=== PATIENT | male | born 1975 | race Caucasian/White ===

== ENCOUNTER 2025-02-13 21:35 | Inpatient (IN) | payer BC, OTHER ==
[~2025-02-13] VITALS: Ht 177.8 cm; Wt 84.8 kg
[2025-02-13] MEDS ORDERED: CLONIDINE HCL 0.1 MG TABLET PO ONE (23:00)
[2025-02-13] MEDS: hydrALAZINE HCL IV 20 MG VIAL IV ONE (23:00)
[2025-02-13] MEDS ORDERED: hydrALAZINE HCL IV 20 MG VIAL ONE (23:00)
[2025-02-13 23:06] LABS: PLATELET COUNT (AUTO) 252 K/uL (150-450); RED BLOOD CELL COUNT(AUTO) 4.84 MIL/uL (4.5-6.0); RED CELL DISTRIBUTION WIDTH 14.7 % (11.5-15.0); WHITE BLOOD COUNT (AUTO) 7.1 K/uL (4.3-11.0)
[2025-02-13 23:16] LABS: CALCIUM, SERUM 9.3 mg/dL (8.5-10.1); CREATININE 0.8 mg/dL (0.6-1.3); SODIUM SERUM 136 mmol/L (136-145); UREA NITROGEN, BLOOD 15 mg/dL (7-18)
[2025-02-13 23:27] LABS: ASPARTATE AMINOTRANSFERASE 59 U/L (15-37); NT-PRO BNP 83 pg/mL (0-125); TOTAL PROTEIN, SERUM 8.0 g/dL (6.4-8.2)
[2025-02-13 23:31] LABS: ALCOHOL, BLOOD < 3 mg/dL (0-10)
[2025-02-14] MEDS ORDERED: hydrALAZINE HCL IV 20 MG VIAL ONE (00:43)
[2025-02-14] MEDS: hydrALAZINE HCL IV 20 MG VIAL IV ONE (00:45)
[2025-02-14] MEDS ORDERED: CLONIDINE HCL 0.1 MG TABLET ONE (00:59)
[2025-02-14] MEDS ORDERED: LORAZEPAM INJ 2 MG/ML VIAL ONE (00:59)
[2025-02-14] MEDS ORDERED: ONDANSETRON HCL/PF 4 MG/2 ML VIAL ONE (00:59)
[2025-02-14] MEDS: CLONIDINE HCL 0.1 MG TABLET PO ONE (01:06)
[2025-02-14] MEDS: ONDANSETRON HCL/PF - ER 4 MG/2 ML VIAL IV ONE (01:07)
[2025-02-14] MEDS: IV NS 0.9% 1,000 ML IV ONE (01:07)
[2025-02-14] MEDS: LORAZEPAM INJ 2 MG/ML VIAL IV ONE (01:07)
[2025-02-14] MEDS ORDERED: MAGNESIUM HYDROXIDE 30 ML UDC PO PRN (02:30)
[2025-02-14] MEDS ORDERED: ACETAMINOPHEN 325 MG TABLET PO PRN (02:30)
[2025-02-14] MEDS ORDERED: MAG HYDROX/AL HYDROX/SIMETH 30 ML UDC PO PRN (02:30)
[2025-02-14] MEDS ORDERED: LORAZEPAM 1 MG TABLET PO PRN (02:30)
[2025-02-14] MEDS ORDERED: ONDANSETRON HCL/PF 4 MG/2 ML VIAL IVP PRN (02:30)
[2025-02-14 03:30] VITALS: BP 184/110; TEMP 98.2; O2SAT 98
[2025-02-14] MEDS ORDERED: QUETIAPINE FUMARATE 100 MG TABLET PO ONE (03:30)
[2025-02-14] MEDS: QUETIAPINE FUMARATE 100 MG TABLET PO ONE (03:40)
[2025-02-14] MEDS: hydrALAZINE HCL IV 20 MG VIAL IV PRN (03:40)
[2025-02-14 06:42] VITALS: BP 146/68; O2SAT 99
[2025-02-14 07:30] VITALS: BP 142/87; TEMP 97.5; O2SAT 96
[2025-02-14 07:42] LABS: PLATELET COUNT (AUTO) 240 K/uL (150-450); RED BLOOD CELL COUNT(AUTO) 4.83 MIL/uL (4.5-6.0); RED CELL DISTRIBUTION WIDTH 14.7 % (11.5-15.0); WHITE BLOOD COUNT (AUTO) 7.2 K/uL (4.3-11.0)
[2025-02-14 07:55] LABS: ASPARTATE AMINOTRANSFERASE 50.0 U/L (15-37); CALCIUM, SERUM 8.8 mg/dL (8.5-10.1); CREATININE 0.7 mg/dL (0.6-1.3); PHOSPHORUS 2.5 mg/dL (2.5-4.9); SODIUM SERUM 136.0 mmol/L (136-145); TOTAL PROTEIN, SERUM 7.2 g/dL (6.4-8.2); UREA NITROGEN, BLOOD 11.0 mg/dL (7-18)
[2025-02-14 08:13] LABS: LDL 105.0 mg/dL (0-99)
[2025-02-14 08:28] VITALS: BP 142/87
[2025-02-14] MEDS: AMLODIPINE BESYLATE 5 MG TABLET PO SCH (08:28)
[2025-02-14] MEDS: PANTOPRAZOLE 40 MG TABLET.DR PO SCH (08:28)
[2025-02-14] MEDS: POTASSIUM CHLORIDE 20 MEQ TAB.PRT.SR PO SCH (11:30)
[2025-02-14] MEDS ORDERED: AMLO5TAB4 PO ×2 (11:52→13:07)
== END 2025-02-14 14:30 | disposition home or self-care (01) | DRG 305 ==
LOC: ER 21:46 → TELE 02-14 01:31
PROVIDERS: ADMIT Internal Medicine; ATTEND Internal Medicine
DX: I16.0 Hypertensive urgency (principal); E78.5 Hyperlipidemia, unspecified; E87.6 Hypokalemia; F10.20 Alcohol dependence, uncomplicated
CPT/HCPCS: 36415; 80048-TC; 80053-TC; 80061-TC; 80076-TC; 83735-TC; 83880; 84100-TC; 84443-TC; 84484-TC; 85025-TC; 93307-TC; G0378; G0480; J0360; J2060; J2405